=== PATIENT | male | born 1970 | race Caucasian/White ===

== ENCOUNTER 2018-05-27 16:25 | Emergency (ER) | payer MEDICAID ==
[~2018-05-27] VITALS: Ht 193 cm; Wt 167.0 kg
== END 2018-05-27 18:07 | disposition home or self-care (01) ==
LOC: ED 17:52
DX: S63.642A Sprain of metacarpophalangeal joint of left thumb, initial encounter (principal); W19.XXXA Unspecified fall, initial encounter; Y93.89 Activity, other specified; Y92.89 Other specified places as the place of occurrence of the external cause; Y99.8 Other external cause status
CPT/HCPCS: 29125; 99283